=== PATIENT | male | born 1995 | race Caucasian/White ===

== ENCOUNTER 2016-08-05 16:51 | Emergency (ER) | payer SELFPAY ==
[~2016-08-05] VITALS: Ht 182.9 cm; Wt 68.2 kg
[2016-08-05 16:59] VITALS: BP 131/67; PULSE 82; TEMP 98.3
== END 2016-08-05 17:37 | disposition left against medical advice (07) ==
LOC: COL.ER 16:51
DX: Z53.21 Procedure and treatment not carried out due to patient leaving prior to being seen by health care provider (principal)

== ENCOUNTER 2017-10-13 08:55 | Emergency (ER) | payer OTHER ==
[~2017-10-13] VITALS: Ht 182.9 cm; Wt 68.2 kg
[2017-10-13 09:04] VITALS: TEMP 98.1
[2017-10-13 09:31] LABS: COLLECTION METHOD CLEAN CATCH
[2017-10-13 09:32] LABS: BASO % 0.6 % (0.0-2.0); EOS # 0.1 (0.0-0.7); EOS % 1.4 % (0-4.0); GRAN # 3.3 (1.4-6.5); GRAN % 52.3 % (42.2-75.2); HEMATOCRIT 44.3 % (42.0-52.0); HEMOGLOBIN 15.1 g/dl (13.5-18.0); LYMPH # 2.4 (1.2-3.4); MEAN CELL VOLUME 89 fl (80.0-100.0); MEAN CORPUSCULAR HEMOGLOBIN 30 pg (27.0-31.0); MEAN CORPUSCULAR HGB CONC 34 g/dl (33.0-37.0); MEAN PLATELET VOLUME 11.4 fl (7.4-10.4); MONO # 0.5 (0.1-0.6); MONO % 7.5 % (1.7-9.3); PLATELET COUNT 190 K/mm3 (130-400); RED BLOOD COUNT 4.96 M/mm3 (4.20-5.60); REDCELL DISTRIBUTION WIDTH-CV 12.4 % (11.5-14.5)
[2017-10-13 09:41] LABS: ALANINE AMINOTRANSFERASE 39 U/L (21-72); ALBUMIN 4.3 gm/dL (3.5-5.0); ALKALINE PHOSPHATASE 63 U/L (50-136); ANION GAP 14 mmol/L (7-16); AST,SGOT 27 U/L (15-37); BLOOD UREA NITROGEN 11 mg/dL (9-20); CALCIUM 9.4 mg/dL (8.4-10.2); CARBON DIOXIDE 26 mmol/L (22-30); CHLORIDE 103 mmol/L (98-107); CREATININE, serum 0.91 mg/dL (0.66-1.25); GLUCOSE 101 mg/dL (74-106); LIPASE 99 U/L (23-300); POTASSIUM 4.1 mmol/L (3.4-5.0); SODIUM 144 mmol/L (137-145); TOTAL PROTEIN 7.7 gm/dL (6.4-8.2)
[2017-10-13 09:43] LABS: MUCOUS Present /lpf; PH 5 (5-8); SQUAMOUS EPITHELIAL 0-2 /hpf; URINE APPEARANCE Clear; URINE BACTERIA None Seen /hpf; URINE BILIRUBIN Negative (NEGATIVE); URINE BLOOD Negative (NEGATIVE); URINE COLOR Yellow; URINE GLUCOSE Negative (NEGATIVE); URINE KETONE Negative (NEGATIVE); URINE LEUKOCYTE ESTERASE Negative (NEGATIVE); URINE NITRATE Negative (NEGATIVE); URINE PROTEIN(semi-quant) Negative (NEGATIVE); URINE RBC 0-2 /hpf; URINE UROBILINOGEN Negative (NEGATIVE)
[2017-10-13 09:55] LABS: C-REACTIVE PROTEIN < 0.5 mg/dL (0.0-0.9)
[2017-10-13 10:41] VITALS: BP 121/84; PULSE 69
== END 2017-10-13 10:42 | disposition home or self-care (01) ==
LOC: COL.ER 08:55
PROVIDERS: Emergency Medicine
DX: R10.9 Unspecified abdominal pain (principal)
CPT/HCPCS: J7030; Q9967

== ENCOUNTER 2018-01-10 16:40 | Emergency (ER) | payer OTHER ==
[~2018-01-10] VITALS: Ht 180.3 cm; Wt 68.2 kg
[2018-01-10 17:30] VITALS: BP 118/69; PULSE 74; TEMP 98.1
== END 2018-01-10 17:32 | disposition home or self-care (01) ==
LOC: COL.ER 16:40
DX: S60.312A Abrasion of left thumb, initial encounter (principal); Z23 Encounter for immunization; W22.8XXA Striking against or struck by other objects, initial encounter